=== PATIENT | male | born 1980 | race Caucasian/White ===

== ENCOUNTER 2016-07-25 01:41 | Emergency (ER) | payer OTHER ==
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
[2016-07-25 02:23] VITALS: BP 118/85; PULSE 101; TEMP 98.8; BMI 33.9
== END 2016-07-25 02:49 | disposition home or self-care (01) ==
LOC: JER 01:41
DX: J70.5 Respiratory conditions due to smoke inhalation (principal); X50.0XXA Overexertion from strenuous movement or load, initial encounter; X02.1XXA Exposure to smoke in controlled fire in building or structure, initial encounter; Y93.89 Activity, other specified; Y92.098 Other place in other non-institutional residence as the place of occurrence of the external cause; Y99.0 Civilian activity done for income or pay
CPT/HCPCS: 99281-25

== ENCOUNTER 2016-09-17 06:01 | Emergency (ER) | payer OTHER ==
[2016-09-17 06:06] VITALS: BP 125/94; PULSE 109; TEMP 97.7; BMI 33.9
--- NOTE | 2016-09-17 06:24 | PDOC ---
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 He does not take any medication for the pain. He denies any chest pain or LOC. He currently denies any chest pain, dyspnea, SOB, or palpitations. He denies any nausea, vomiting, fever, chills, cough, headache, dizziness, loss of sensation to extremities, numbness, tingling, loss of bowel or bladder function. No recent travel or sick contacts. PAST MEDICAL HISTORY: Denies past medical history FAMILY HISTORY: Denies SOCIAL HISTORY: Denies tobacco, illicit drug use. Occasional alcohol use. SURGICAL HISTORY: Denies ALLERGIES: No known drug allergies REVIEW OF SYSTEMS General/Constitutional: Denies fever or chills. Denies weakness, weight change. HEENT: Denies change in vision. Denies ear pain or discharge. Denies sore throat. Cardiovascular: Denies chest pain or shortness of breath. Respiratory: Denies cough, wheezing, or hemoptysis. Gastrointestinal: Denies nausea, vomiting, diarrhea or constipation. Denies rectal bleeding. Genitourinary: Denies dysuria, frequency, or change in urination. Musculoskeletal: Lower back pain. Denies joint or muscle swelling or pain. Skin and breasts: Denies rash or easy bruising. Neurologic: Denies headache, vertigo, loss of consciousness, or loss of sensation. PHYSICAL EXAM General Appearance: Well-appearing, appropriately dressed. No apparent distress , no intoxication. HEENT: EOMI, PERRLA, normal ENT inspection, normal voice, TMs normal, pharynx normal. No conjunctival pallor. No photophobia, scleral icterus. Respiratory/Chest: Lungs CTAB. Cardiovascular: RRR. S1, S2. Vascular Pulses: Dorsalis-Pedis (R): 2+, Dorsalis-Pedis (L): 2+ Gastrointestinal/Abdominal: Normal bowel sounds. Abdomen soft, non-distended. No tenderness or rebound tenderness. No organomegaly, pulsatile mass, guarding , hernia, hepatomegaly, splenomegaly. Lymphatic: No adenopathy, tenderness. Musculoskeletal/Extremities: Normal inspection. FROM of all extremities, normal capillary refill. Pelvis Stable. No CVA tenderness. No tenderness to extremities, pedal edema, swelling, erythema or deformity. Integumentary: Appropriate color, dry, warm. 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 Fully oriented, alert. Appropriate mood/affect. Motor strength 5/5. No appreciable EOM palsy, facial droop or sensory deficit. Past History - Past Medical History Allergies/Adverse Reactions: Allergies Allergy/AdvReac Type Severity Reaction Status Date / Time No Known Allergies Allergy Verified 09/17/16 06:02 Home Medications: Ambulatory Orders NK [No Known Home Medication] 12/26/15 - Psycho/Social/Smoking Cessation Hx Suicidal Ideation: No Smoking History: Never smoked Have you smoked in the past 12 months: No Information on smoking cessation initiated: No Hx Alcohol Use: No Drug/Substance Use Hx: No Substance Use Type: None *Physical Exam - Vital Signs Last Vital Signs Temp Pulse Resp BP Pulse Ox 97.7 F 109 H 14 125/94 98 09/17/16 06:03 09/17/16 06:03 09/17/16 06:03 09/17/16 06:03 09/17/16 06:03 Medical Decision Making - Medical Decision Making 09/17/16 06:24 36 yo M with no PMH presents to ED with lower back pain. -800 mg ibuprofen Patient states he does not want to take any medications, refuses ibuprofen. Advised patient to follow up with orthopedics if symptoms persist. Patient verbalized understanding and agrees to plan. *DC/Admit/Observation/Transfer Diagnosis at time of Disposition: Low back pain Qualifiers: Chronicity: acute Back pain laterality: bilateral Sciatica presence: unspecified whether sciatica present Qualified Code(s): M54.5 - Low back pain - Discharge Dispostion Disposition: HOME Condition at time of disposition: Stable Admit: No - Referrals Referrals: Boo Willson MD [Primary Care Provider] - Kit Jin MD [Staff Physician] - - Patient Instructions Printed Discharge Instructions: DI for Low Back Pain Additional Instructions: Please follow up with orthopedics if your symptoms persist. If you experience any numbness, loss of sensation, or tingling to your legs, or any loss of bowel or bladder function, please return to the ER immediately.
--- NOTE | 2016-09-17 06:26 | PDOC ---
*Physical Exam - Vital Signs Last Vital Signs Temp Pulse Resp BP Pulse Ox 97.7 F 109 H 14 125/94 98 09/17/16 06:03 09/17/16 06:03 09/17/16 06:03 09/17/16 06:03 09/17/16 06:03 Medical Decision Making - Medical Decision Making 09/17/16 06:26 agree with care from PRUDENCE Allen *DC/Admit/Observation/Transfer Diagnosis at time of Disposition: Low back pain - Referrals Referrals: Kit Jin MD [Staff Physician] - Boo Willson MD [Primary Care Provider] - - Patient Instructions Printed Discharge Instructions: DI for Low Back Pain Additional Instructions: Please follow up with orthopedics if your symptoms persist. If you experience any numbness, loss of sensation, or tingling to your legs, or any loss of bowel or bladder function, please return to the ER immediately.
== END 2016-09-17 06:47 | disposition home or self-care (01) ==
LOC: JER 06:01
DX: M54.5 Low back pain (principal); X58.XXXA Exposure to other specified factors, initial encounter; Y93.89 Activity, other specified; Y92.89 Other specified places as the place of occurrence of the external cause; Y99.0 Civilian activity done for income or pay
CPT/HCPCS: 99282-25

== ENCOUNTER 2018-12-22 22:30 | Emergency (ER) | payer OTHER ==
[2018-12-22 22:45] VITALS: BP 115/76; PULSE 89; TEMP 98.7; BMI 35.5
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
== END 2018-12-22 23:58 | disposition home or self-care (01) ==
LOC: JER 22:30
DX: S39.012A Strain of muscle, fascia and tendon of lower back, initial encounter (principal); W10.8XXA Fall (on) (from) other stairs and steps, initial encounter; X00.8XXA Other exposure to uncontrolled fire in building or structure, initial encounter; Y93.89 Activity, other specified; Y92.098 Other place in other non-institutional residence as the place of occurrence of the external cause; Y99.0 Civilian activity done for income or pay
CPT/HCPCS: 99281-25